=== PATIENT | female | born 1995 | race Caucasian/White ===

== ENCOUNTER 2018-08-22 19:05 | Emergency (ER) | payer BC ==
[2018-08-22] MEDS ORDERED: Ketorolac Tromethamine 30 MG/ML VIAL ONE (19:11)
[2018-08-22 19:45] LABS: #Basophils 0.1 thou/uL (0.0-0.2); #Eosinphils 0.1 thou/uL (0.0-0.7); #Lymphocytes 3.6 thou/uL (1.20-3.40); #Monocytes 0.7 thou/uL (0.11-0.59); #Neutrophils 4.5 thou/uL (1.40-6.50); %Basophils 1.2 % (0.0-1.0); %Eosinophils 1.4 % (0.0-10.0); %Lymphocytes 40.3 % (28.0-48.0); %Monocytes 7.2 % (0.0-4.0); %Neutrophils 49.9 % (31.0-61.0); Hemoglobin 13.4 g/dL (12.0-16.0); Mean Corpuscular HGB CONC 32.5 g/dL (32.0-36.0); Mean Corpuscular Hemoglobin 27.9 pg (25.0-35.0); Mean Corpuscular Volume 85.8 fL (78.0-98.0); Mean Platelet Volume 8.6 fL (7.4-10.4); Platelet Count 279 thou/uL (130-400); RBC Distribution Width 11.4 % (11.5-14.5)
[2018-08-22 20:08] LABS: ALT (SGPT) 8 U/L (8-55); AST (SGOT) 13 U/L (5-34); Albumin 4.3 g/dL (3.5-5.0); Alkaline Phosphatase 48 U/L (40-150); Anion Gap 9 mmol/L (10-20); BUN (Urea Nitrogen) 17 mg/dL (7.0-18.7); Bilirubin, Total 0.3 mg/dL (0.2-1.2); Calc. Creatinine Clearance 0 mL/min (70-130); Calcium 9.4 mg/dL (7.8-10.44); Carbon Dioxide 26 mmol/L (22-29); Chloride 106 mmol/L (98-107); Estimated GFR-MDRD 88; Glucose 97 mg/dL (70-105); Potassium 3.3 mmol/L (3.5-5.1); Protein, Total 7.3 g/dL (6.0-8.3); Sodium 138 mmol/L (136-145)
[2018-08-22] MEDS ORDERED: Ciprofloxacin 500 MG TAB ONE (21:06)
== END 2018-08-22 21:35 | disposition home or self-care (01) ==
LOC: ERS 19:05
DX: M43.6 Torticollis (principal); Z20.811 Contact with and (suspected) exposure to meningococcus
CPT/HCPCS: 80053; 85025; 96361; 96374; J1885